=== PATIENT | male | born 1940 | race Caucasian/White ===

== ENCOUNTER 2020-11-07 13:16 | Emergency (ER) | payer MEDICARE ==
[~2020-11-07 13:16] MED LIST: 8 HOUR650 MG GT; ADVAIR 100-501 EACH; ALLOPURINOL 10100 MG GT; ALLOPURINOL100 MG PO; AMOXICILLIN500 MG PO; ANORO ELLIPTA1 EACH INH; ASPIRIN CHEWABL81 MG GT; ASPIRIN CHEWABL81 MG PO; ASTROVASTIN PO; ATARAX25 MG PO; ATROVENT (00.2 MG/ML INH; AZITHROMYCIN250 MG PO; BACITRACIN15 GM TOP; BENZONATATE200 MG PO; BEVESPI AEROS10.7 GM PO; BUMEX1 MG GT; BUMEX1 MG PO; BYSTOLIC5 MG PO; CEFDINIR300 MG PO; CEFTIN250 MG PO; DOCU LIQUI50 MG/5 ML JT; DULERA 200 MCG8.8 GM INH; DUONEB 2.5-0.5M1 AMP INH; DUONEB 2.5-0.5M1 AMP NEB; ELIQUIS5 MG JT; ERYTHROMYCIN1 G1 EYELF; FLONASE ALLER15.8 ML; FLOVENT HF120 PUFFS/ INH; HYDROCODON-ACE1 EAC2 PO; INDOMETHACIN50 MG PO; IPRATROPIUM0.2 MG/ML NEB; JEVITY 1.2 CA1000 ML GT; KEPPRA100 MG/1 M GT; LACTINEX1 EACH PO; LANSOPRAZOLE30 M1 GT; LASIX40 MG PO; LEVAQUIN500 MG PO; LEVAQUIN750 MG PO; LEVOTHYROXINE112 MCG PO; LIDOCAINE 5% P1 EACH TOP; LIPITOR40 MG PO; LOPRESSOR25 MG JT; LOPRESSOR25 MG PO; MEDROL 4MG DOSEP4 MG PO; MONTELUKAST SOD10 MG PO; MUCINEX 600MG600 MG PO; NIFEREX150 MG GT; NITROQUIK SL0.4 MG SL; NITROSTAT0.4 MG SL; NORCO 5-325 TA1 EACH GT; NORCO 5-325 TA1 EACH PO; NORCO 7.5-3251 EACH PO; PATIENT'S OWN MED GT; PEPCID AC20 MG GT; PERMETHRIN CREA60 GM TOP; POTASSIUM20 MEQ/11 GT; POTASSIUM20 MEQ/11 JT; PREDNISONE 10MG10 MG PO; PREDNISONE 20MG20 MG PO; PRILOSEC20 MG PO; PRINIVIL10 MG PO; PROAIR HFA8.5 GM; PROAMATINE5 MG GT; PROMOD946 ML GT; PROVENTIL HFA6.7 GM INH; REMERON15 MG GT; REMERON15 MG PO; SINGULAIR10 MG PO; STOOL SOFTENER100 M1 PO; SYNTHROID112 MCG GT; SYNTHROID112 MCG PO; THEO-24300 MG PO; THEOCHRON300 MG PO; THEOPHYLLI80 MG/151 GT; VENTOLIN (2.5 MG/3 M INH; VENTOLIN (2.5 MG/3 M NEB; VENTOLIN HFA IN18 GM INH; XARELTO20 MG PO; ZINC OXIDE60 GM TOP; ZITHROMAX500 MG PO; ZPAK PO
[2020-11-07 14:08] LABS: BASOPHIL 1.1 % (0-2); EOSINOPHIL 4.6 % (0-7); HCT 37.7 % (42.0-52.0); HGB 11.3 g/dl (13.2-18.0); MCH 29.7 pg (25.0-31.0); MCV 99.2 fL (78.0-100.0); MONOCYTE 10.6 % (0-12); MPV 11.2 fL (6.0-9.5); NEUTROPHIL 73.4 % (41-80); NRBC 0; PLT 96 K/uL (150-400); RDW 13.2 % (11.5-14.0); WBC 7.2 K/uL (4.0-10.5)
[2020-11-07 14:28] LABS: ALBUMIN 3.3 g/dL (3.4-5.0); BILIRUBIN - TOTAL 0.3 mg/dL (0.2-1.0); BUN/CREAT RATIO (CALC) 37.3 RATIO; CREATININE 1.02 mg/dL (0.67-1.17); GLOBULIN (CALCULATION) 3.7 g/dL; POTASSIUM 4.5 mmol/L (3.5-5.1)
[2020-11-07 14:40] LABS: LACTIC ACID 1.8 mmol/L (0.4-1.9)
[2020-11-07 14:44] LABS: PRO-BNP 3095 pg/mL (<450)
[2020-11-07 15:02] LABS: PROTHROMBIN TIME 12.6 SECONDS (11.8-13.4); PTT 29.2 SECONDS (24.4-34.7)
[2020-11-07] MEDS ORDERED: BUMEX1 MG PO (16:39)
[2020-11-07] MEDS ORDERED: K-DUR20 MEQ PO (16:39)
== END 2020-11-07 17:20 | disposition home or self-care (01) ==
LOC: FER 13:16
PROVIDERS: Emergency Medicine
DX: I50.9 Heart failure, unspecified (principal); I25.10 Atherosclerotic heart disease of native coronary artery without angina pectoris; J44.9 Chronic obstructive pulmonary disease, unspecified; Z20.822 Contact with and (suspected) exposure to COVID-19; Z95.0 Presence of cardiac pacemaker; Z88.5 Allergy status to narcotic agent
CPT/HCPCS: 36415; 71045; 80053; 83605; 83880; 84484; 85025; 85610; 85730; 87040; 93005; J1940; U0002

== ENCOUNTER 2020-11-10 13:19 | Day surgery (SDCO) | payer MEDICARE ==
[~2020-11-10] VITALS: Ht 175.3 cm; Wt 67.4 kg
[~2020-11-10 13:19] MED LIST changes: +K-DUR20 MEQ PO
[2020-11-10 15:31] LABS: BASOPHIL 0.7 % (0-2); EOSINOPHIL 7.5 % (0-7); HCT 37.5 % (42.0-52.0); HGB 11.3 g/dl (13.2-18.0); LYMPHOCYTE 18.1 % (15-48); MCH 29.4 pg (25.0-31.0); MCHC 30.1 g/dL (32.0-36.0); MCV 97.4 fL (78.0-100.0); MONOCYTE 10.3 % (0-12); MPV 11.1 fL (6.0-9.5); NEUTROPHIL 63.2 % (41-80); NRBC 0; PLT 105 K/uL (150-400); RBC 3.85 M/uL (4.70-6.00); RDW 12.8 % (11.5-14.0)
[2020-11-10 15:44] LABS: ALBUMIN 3.1 g/dL (3.4-5.0); BILIRUBIN - TOTAL 0.3 mg/dL (0.2-1.0); BUN/CREAT RATIO (CALC) 44.3 RATIO; CREATININE 0.97 mg/dL (0.67-1.17); GLOBULIN (CALCULATION) 3.6 g/dL; POTASSIUM 4.7 mmol/L (3.5-5.1); TOTAL PROTEIN 6.7 g/dL (6.4-8.2)
[2020-11-10 15:48] LABS: PRO-BNP 2005 pg/mL (<450)
[2020-11-10 16:03] LABS: INR 0.98 (0.9-1.2); PROTHROMBIN TIME 12.4 SECONDS (11.8-13.4)
[2020-11-10 17:35] LABS: BILIRUBIN NEGATIVE (NEGATIVE); BLOOD NEGATIVE Ery/uL (NEGATIVE); CLARITY CLEAR (CLEAR); COLOR YELLOW (YELLOW); GLUCOSE (U) NORMAL (NORMAL); LEUKOCYTES NEGATIVE Leu/uL (NEGATIVE); NITRITE NEGATIVE (NEGATIVE); PROTEIN 1+ mg/dL (NEGATIVE); UROBILINOGEN 0.2 mg/dL (0.2-1.0)
[2020-11-10 17:50] LABS: AMORPHOUS URATES CRYSTALS TRACE; URINARY WBC RARE
[2020-11-10] MEDS ORDERED: SYNTHROID125 MCG PEG (23:18)
[2020-11-10] MEDS ORDERED: JEVITY 1.5 CA1500 ML GT (23:27)
[2020-11-10] MEDS ORDERED: PRILOSEC20 MG PEG (23:39)
[2020-11-10] MEDS ORDERED: POTASSIUM20 MEQ/11 PEG (23:42)
[2020-11-11 04:14] LABS: BASOPHIL 1.1 % (0-2); EOSINOPHIL 9.2 % (0-7); HCT 37.3 % (42.0-52.0); HGB 11.4 g/dl (13.2-18.0); LYMPHOCYTE 23.3 % (15-48); MCH 29.3 pg (25.0-31.0); MCHC 30.6 g/dL (32.0-36.0); MCV 95.9 fL (78.0-100.0); MONOCYTE 9.4 % (0-12); MPV 10.6 fL (6.0-9.5); NEUTROPHIL 56.7 % (41-80); NRBC 0; PLT 110 K/uL (150-400); RBC 3.89 M/uL (4.70-6.00); RDW 12.8 % (11.5-14.0); WBC 6.5 K/uL (4.0-10.5)
[2020-11-11 04:28] LABS: BUN/CREAT RATIO (CALC) 38.7 RATIO; CREATININE 0.93 mg/dL (0.67-1.17); POTASSIUM 4.3 mmol/L (3.5-5.1)
[2020-11-12 04:33] LABS: BASOPHIL 0.7 % (0-2); EOSINOPHIL 0.1 % (0-7); HCT 37.1 % (42.0-52.0); HGB 11.5 g/dl (13.2-18.0); LYMPHOCYTE 11.2 % (15-48); MCH 29.3 pg (25.0-31.0); MCV 94.6 fL (78.0-100.0); MONOCYTE 6.9 % (0-12); MPV 10.7 fL (6.0-9.5); NEUTROPHIL 80.7 % (41-80); NRBC 0; PLT 113 K/uL (150-400); RBC 3.92 M/uL (4.70-6.00); RDW 12.4 % (11.5-14.0); WBC 7.4 K/uL (4.0-10.5)
[2020-11-12 04:57] LABS: BUN/CREAT RATIO (CALC) 45.5 RATIO; CREATININE 1.1 mg/dL (0.67-1.17); POTASSIUM 4.7 mmol/L (3.5-5.1)
[2020-11-12] MEDS ORDERED: BUMEX1 MG PO (17:06)
[2020-11-12] MEDS ORDERED: AZITHROMYC100 MG/5 M PEG (17:11)
[2020-11-12] MEDS ORDERED: DUONEB 2.5-0.5M1 AMP NEB (17:11)
[2020-11-12] MEDS ORDERED: PREDNISOLO15 MG/5 M3 PEG (17:11)
[2020-11-12] MEDS ORDERED: SYMBICORT 80-10.2 GM INH (17:13)
[2020-11-13 06:32] LABS: BUN/CREAT RATIO (CALC) 55.8 RATIO; CREATININE 0.95 mg/dL (0.67-1.17); POTASSIUM 4.6 mmol/L (3.5-5.1)
--- NOTE | 2020-11-13 13:47 | NUR ---
PT REQUESTED [facility]. PT SIGNED CHOICE FORM.
== END 2020-11-13 17:04 | disposition home health service (06) ==
LOC: FER 13:19 → FMS 18:13
PROVIDERS: Internal Medicine Cardiovascular Disease; Nurse Practitioner; Physician Assistant; ADMIT Allergy & Immunology Allergy
DX: I13.0 Hypertensive heart and chronic kidney disease with heart failure and stage 1 through stage 4 chronic kidney disease, or unspecified chronic kidney disease (principal); N18.9 Chronic kidney disease, unspecified; I50.9 Heart failure, unspecified; J44.1 Chronic obstructive pulmonary disease with (acute) exacerbation; R53.1 Weakness; R53.83 Other fatigue; I25.5 Ischemic cardiomyopathy; E87.0 Hyperosmolality and hypernatremia; I25.10 Atherosclerotic heart disease of native coronary artery without angina pectoris; I48.0 Paroxysmal atrial fibrillation; K21.9 Gastro-esophageal reflux disease without esophagitis; E78.5 Hyperlipidemia, unspecified; E03.9 Hypothyroidism, unspecified; E43 Unspecified severe protein-calorie malnutrition; M19.90 Unspecified osteoarthritis, unspecified site; Z87.891 Personal history of nicotine dependence; Z95.810 Presence of automatic (implantable) cardiac defibrillator; Z99.81 Dependence on supplemental oxygen; Z95.1 Presence of aortocoronary bypass graft; Z91.041 Radiographic dye allergy status; Z79.899 Other long term (current) drug therapy; Z20.822 Contact with and (suspected) exposure to COVID-19
CPT/HCPCS: 36415; 71045; 80048; 80053; 81001; 83880; 84145; 84484; 85025; 85610; 93005; 94640; 94667; 94668; 97166; 97530; G0378; J1650; J2930; J7512; U0002

== ENCOUNTER 2021-04-05 03:56 | Inpatient (IN) | payer MEDICARE ==
[~2021-04-05] VITALS: Ht 175.3 cm; Wt 68.1 kg
[~2021-04-05 03:56] MED LIST changes: +AZITHROMYC100 MG/5 M PEG; +JEVITY 1.5 CA1500 ML GT; +POTASSIUM20 MEQ/11 PEG; +PREDNISOLO15 MG/5 M3 PEG; +PRILOSEC20 MG PEG; +SYMBICORT 80-10.2 GM INH; +SYNTHROID125 MCG PEG
[2021-04-05 04:22] LABS: BASOPHIL 0.8 % (0-2); EOSINOPHIL 2.5 % (0-7); HCT 40.9 % (42.0-52.0); LYMPHOCYTE 12.4 % (15-48); MCH 29.8 pg (25.0-31.0); MCHC 29.3 g/dL (32.0-36.0); MCV 101.5 fL (78.0-100.0); MONOCYTE 12.7 % (0-12); MPV 10.6 fL (6.0-9.5); NEUTROPHIL 71.2 % (41-80); NRBC 0; RBC 4.03 M/uL (4.70-6.00); RDW 12.6 % (11.5-14.0); WBC 7.3 K/uL (4.0-10.5)
[2021-04-05 04:23] LABS: PLT 93 K/uL (150-400)
[2021-04-05 04:35] LABS: ALBUMIN 3.6 g/dL (3.4-5.0); BILIRUBIN - TOTAL 0.4 mg/dL (0.2-1.0); BUN/CREAT RATIO (CALC) 36.3 RATIO; CREATININE 1.02 mg/dL (0.67-1.17); GLOBULIN (CALCULATION) 3.5 g/dL; POTASSIUM 4.8 mmol/L (3.5-5.1); TOTAL PROTEIN 7.1 g/dL (6.4-8.2)
[2021-04-05 06:27] LABS: BILIRUBIN NEGATIVE (NEGATIVE); BLOOD TRACE-INTACT Ery/uL (NEGATIVE); CLARITY CLEAR (CLEAR); COLOR YELLOW (YELLOW); GLUCOSE (U) NORMAL (NORMAL); LEUKOCYTES NEGATIVE Leu/uL (NEGATIVE); NITRITE NEGATIVE (NEGATIVE); PROTEIN TRACE (LOW) mg/dL (NEGATIVE); UROBILINOGEN 0.2 mg/dL (0.2-1.0); pH 6.5 (5.0-9.0)
[2021-04-05 06:47] LABS: URINARY WBC RARE
[2021-04-05 06:48] LABS: BACTERIA 1+
[2021-04-05] MEDS ORDERED: SYNTHROID125 MCG PO (14:48)
[2021-04-05] MEDS ORDERED: LIPITOR40 MG PO (14:48)
[2021-04-05] MEDS ORDERED: REMERON15 MG PO (14:49)
[2021-04-05] MEDS ORDERED: PEPCID AC20 MG PO (14:50)
[2021-04-05] MEDS ORDERED: KLOR-CON M1515 MEQ PO (14:50)
[2021-04-05] MEDS ORDERED: PRILOSEC20 MG PO (14:50)
--- NOTE | 2021-04-06 05:51 | NUR ---
PT GOT BOLUS FEEDING OF 2 1.5 JEVITY CONTAINERS AT 2200 04/05/21 AND WAS FLUSHED WITH 100 ML OF WATER
[2021-04-06 06:55] LABS: BASOPHIL 0.2 % (0-2); EOSINOPHIL 0 % (0-7); HCT 35.4 % (42.0-52.0); HGB 10.9 g/dl (13.2-18.0); LYMPHOCYTE 7.5 % (15-48); MCH 30.2 pg (25.0-31.0); MCHC 30.8 g/dL (32.0-36.0); MCV 98.1 fL (78.0-100.0); MONOCYTE 6.1 % (0-12); MPV 11.2 fL (6.0-9.5); NRBC 0; RBC 3.61 M/uL (4.70-6.00); RDW 12.1 % (11.5-14.0); WBC 5.6 K/uL (4.0-10.5)
[2021-04-06 06:56] LABS: PLT 93 K/uL (150-400)
[2021-04-06 07:10] LABS: BUN/CREAT RATIO (CALC) 49.5 RATIO; CREATININE 0.97 mg/dL (0.67-1.17); POTASSIUM 4.4 mmol/L (3.5-5.1)
[2021-04-06] MEDS ORDERED: VENTOLIN HFA IN18 GM INH (18:02)
[2021-04-06] MEDS ORDERED: DUONEB 2.5-0.5M1 AMP INH (18:02)
[2021-04-09 06:44] LABS: BASOPHIL 0.3 % (0-2); EOSINOPHIL 0 % (0-7); HCT 40.4 % (42.0-52.0); HGB 12.6 g/dl (13.2-18.0); MCH 29.5 pg (25.0-31.0); MCHC 31.2 g/dL (32.0-36.0); MCV 94.6 fL (78.0-100.0); MONOCYTE 3.1 % (0-12); MPV 11.6 fL (6.0-9.5); NEUTROPHIL 85.7 % (41-80); NRBC 0; RBC 4.27 M/uL (4.70-6.00); WBC 6.7 K/uL (4.0-10.5)
[2021-04-09 06:46] LABS: PLT 108 K/uL (150-400)
[2021-04-09 06:56] LABS: BUN/CREAT RATIO (CALC) 49.4 RATIO; CREATININE 0.85 mg/dL (0.67-1.17); POTASSIUM 5.4 mmol/L (3.5-5.1)
--- NOTE | 2021-04-10 14:45 | NUR ---
MET WITH PT. HE STATES THAT HE HAS A ROLLING WALKER, 05/15 AND HOME O2. HE IS ON 3L AT HOME, BUT CURRENLTY ON 4 L AT THE HOSPITAL. HIS OXYGEN IS THROUGH [facility]. HE CONTINUES TO DECLINE HAVING HH. HE RESIDES WITH HIS .
--- NOTE | 2021-04-11 01:44 | NUR ---
pt refused 2200 feeding last evening on 04/10/2021
--- NOTE | 2021-04-11 10:15 | NUR ---
TC TO PT DAUGHTER, MARCELLA. SHE WILL PICK PT UP FOR TRANSPORT HOME. SHE NEEDS TO BE BACK HOME BEFORE 3:00 TO MEET THE CHILDREN OFF THE BUS. ADVISED ALYSON CAVANAUGH OF DAUGHTERS SITUATION. PAMELA WILL ALERT DR. ROY. ADVISED AFSHAN TO CALL DAUGHTER WHEN PT IS READY FOR DC. TC TO [facility]; EXPLAINED TRANSPORTATION HAS BEEN ARRANAGED.
[2021-04-11 10:16] LABS: BUN/CREAT RATIO (CALC) 39.8 RATIO; CREATININE 0.93 mg/dL (0.67-1.17); POTASSIUM 4.4 mmol/L (3.5-5.1)
[2021-04-11] MEDS ORDERED: CEFDINIR 1125 MG/5 M GT (10:25)
[2021-04-11] MEDS ORDERED: MEDROL 4MG DOSEP4 MG PO (10:27)
[2021-04-11] MEDS ORDERED: BUMEX1 MG PO (10:27)
== END 2021-04-11 12:10 | disposition home or self-care (01) | DRG 177 ==
LOC: FER 03:56 → FMS 11:30
PROVIDERS: Allergy & Immunology Allergy; Emergency Medicine Emergency Medical Services; ADMIT Internal Medicine
DX: J15.6 Pneumonia due to other Gram-negative bacteria (principal); I50.33 Acute on chronic diastolic (congestive) heart failure; J96.21 Acute and chronic respiratory failure with hypoxia; J96.22 Acute and chronic respiratory failure with hypercapnia; J43.9 Emphysema, unspecified; J69.0 Pneumonitis due to inhalation of food and vomit; R13.10 Dysphagia, unspecified; Z20.822 Contact with and (suspected) exposure to COVID-19; I11.0 Hypertensive heart disease with heart failure; E03.9 Hypothyroidism, unspecified; I48.0 Paroxysmal atrial fibrillation; I25.10 Atherosclerotic heart disease of native coronary artery without angina pectoris; K21.9 Gastro-esophageal reflux disease without esophagitis; M10.9 Gout, unspecified; E78.5 Hyperlipidemia, unspecified; I25.5 Ischemic cardiomyopathy; Z99.81 Dependence on supplemental oxygen; Z96.641 Presence of right artificial hip joint; Z95.810 Presence of automatic (implantable) cardiac defibrillator; Z95.1 Presence of aortocoronary bypass graft; Z90.49 Acquired absence of other specified parts of digestive tract; Z87.891 Personal history of nicotine dependence; Z91.041 Radiographic dye allergy status; Z79.899 Other long term (current) drug therapy
CPT/HCPCS: 36415; 36600; 71045; 71250; 80048; 80053; 81001; 82803; 83605; 83880; 84145; 84484; 85025; 87040; 87070; 87076; 87077; 87088; 87186; 87205; 93005; 94640; J0696; J1650; J2543; J2920; J2930; J7030; J7510; U0002

== ENCOUNTER 2021-05-31 15:37 | Inpatient (IN) | payer MEDICARE ==
[~2021-05-31] VITALS: Ht 175.3 cm; Wt 65.9 kg
[~2021-05-31 15:37] MED LIST changes: +CEFDINIR 1125 MG/5 M GT; +KLOR-CON M1515 MEQ PO; +PEPCID AC20 MG PO; +SYNTHROID125 MCG PO
[2021-05-31 16:26] LABS: BASOPHIL 0.6 % (0-2); EOSINOPHIL 2.1 % (0-7); HCT 43.1 % (42.0-52.0); HGB 12.5 g/dl (13.2-18.0); LYMPHOCYTE 4.6 % (15-48); MCV 103.6 fL (78.0-100.0); MONOCYTE 5.5 % (0-12); MPV 12.1 fL (6.0-9.5); NEUTROPHIL 86.6 % (41-80); NRBC 0; PLT 99 K/uL (150-400); RBC 4.16 M/uL (4.70-6.00); RDW 14.3 % (11.5-14.0)
[2021-05-31 16:29] LABS: WBC 17.6 K/uL (4.0-10.5)
[2021-05-31 17:01] LABS: LACTIC ACID 1.6 mmol/L (0.4-1.9)
[2021-05-31 17:20] LABS: ALBUMIN 3.7 g/dL (3.4-5.0); BILIRUBIN - TOTAL 0.5 mg/dL (0.2-1.0); BUN/CREAT RATIO (CALC) 43.7 RATIO; CREATININE 1.35 mg/dL (0.67-1.17); GLOBULIN (CALCULATION) 3.7 g/dL; POTASSIUM 5.5 mmol/L (3.5-5.1); TOTAL PROTEIN 7.4 g/dL (6.4-8.2)
[2021-05-31 19:37] LABS: BILIRUBIN NEGATIVE (NEGATIVE); BLOOD NEGATIVE Ery/uL (NEGATIVE); CLARITY CLEAR (CLEAR); COLOR YELLOW (YELLOW); GLUCOSE (U) NORMAL (NORMAL); LEUKOCYTES NEGATIVE Leu/uL (NEGATIVE); NITRITE NEGATIVE (NEGATIVE); PROTEIN 1+ mg/dL (NEGATIVE); UROBILINOGEN 0.2 mg/dL (0.2-1.0); pH 8.5 (5.0-9.0)
[2021-05-31 19:45] LABS: URINARY WBC RARE
[2021-05-31 20:01] LABS: FOLIC ACID (SERUM) 11.7 ng/mL (8.6-58.9); FT4 (FREE T4) 1.4 ng/dL (0.76-1.46)
[2021-06-01 00:06] LABS: BUN/CREAT RATIO (CALC) 41.1 RATIO; CREATININE 1.29 mg/dL (0.67-1.17); POTASSIUM 4.8 mmol/L (3.5-5.1)
[2021-06-01 06:17] LABS: BASOPHIL 0.9 % (0-2); EOSINOPHIL 2.1 % (0-7); HCT 32.8 % (42.0-52.0); HGB 9.5 g/dl (13.2-18.0); LYMPHOCYTE 13.6 % (15-48); MCH 30.1 pg (25.0-31.0); MCV 103.8 fL (78.0-100.0); MONOCYTE 6.7 % (0-12); MPV 12.4 fL (6.0-9.5); NEUTROPHIL 76.1 % (41-80); NRBC 0; RBC 3.16 M/uL (4.70-6.00); RDW 14.2 % (11.5-14.0); WBC 10.5 K/uL (4.0-10.5)
[2021-06-01 06:19] LABS: PLT 73 K/uL (150-400)
[2021-06-01 06:40] LABS: BUN/CREAT RATIO (CALC) 38.7 RATIO; CREATININE 1.24 mg/dL (0.67-1.17); POTASSIUM 4.5 mmol/L (3.5-5.1)
[2021-06-01 12:06] LABS: BUN/CREAT RATIO (CALC) 43.1 RATIO; CREATININE 1.16 mg/dL (0.67-1.17); POTASSIUM 4.4 mmol/L (3.5-5.1)
[2021-06-02 06:09] LABS: BASOPHIL 0.3 % (0-2); EOSINOPHIL 0.1 % (0-7); HCT 32.3 % (42.0-52.0); HGB 9.8 g/dl (13.2-18.0); LYMPHOCYTE 4.7 % (15-48); MCH 30.1 pg (25.0-31.0); MCHC 30.3 g/dL (32.0-36.0); MONOCYTE 1.3 % (0-12); MPV 12.7 fL (6.0-9.5); NEUTROPHIL 92.8 % (41-80); NRBC 0; RBC 3.26 M/uL (4.70-6.00); WBC 8.8 K/uL (4.0-10.5)
[2021-06-02 06:11] LABS: MCV 99.1 fL (78.0-100.0); PLT 80 K/uL (150-400)
[2021-06-02 06:24] LABS: BUN/CREAT RATIO (CALC) 54.6 RATIO; CREATININE 1.19 mg/dL (0.67-1.17); POTASSIUM 5.3 mmol/L (3.5-5.1)
[2021-06-03 06:06] LABS: BASOPHIL 0.1 % (0-2); EOSINOPHIL 0 % (0-7); HCT 29.8 % (42.0-52.0); HGB 9.2 g/dl (13.2-18.0); MCHC 30.9 g/dL (32.0-36.0); MCV 97.1 fL (78.0-100.0); NRBC 0; RBC 3.07 M/uL (4.70-6.00); RDW 14.1 % (11.5-14.0); WBC 8.6 K/uL (4.0-10.5)
[2021-06-03 06:08] LABS: NEUTROPHIL 93.4 % (41-80); PLT 94 K/uL (150-400)
[2021-06-03 06:34] LABS: CREATININE 1.03 mg/dL (0.67-1.17); POTASSIUM 4.8 mmol/L (3.5-5.1)
[2021-06-04 14:15] LABS: IRON % SATURATION 35.4 %SAT (20-50)
[2021-06-06 06:22] LABS: BASOPHIL 0.6 % (0-2); EOSINOPHIL 0.8 % (0-7); HCT 32.5 % (42.0-52.0); HGB 10.1 g/dl (13.2-18.0); LYMPHOCYTE 10.3 % (15-48); MCH 30.6 pg (25.0-31.0); MCHC 31.1 g/dL (32.0-36.0); MCV 98.5 fL (78.0-100.0); MONOCYTE 9.6 % (0-12); NRBC 0.5; PLT 126 K/uL (150-400); RDW 14.5 % (11.5-14.0); WBC 10.7 K/uL (4.0-10.5)
[2021-06-06 06:35] LABS: BUN/CREAT RATIO (CALC) 57.1 RATIO; CREATININE 0.84 mg/dL (0.67-1.17); MAGNESIUM 2.4 mg/dL (1.8-2.4); POTASSIUM 4.6 mmol/L (3.5-5.1)
[2021-06-06] MEDS ORDERED: CEFDINIR300 MG PO (15:38)
== END 2021-06-06 17:18 | disposition home health service (06) | DRG 190 ==
LOC: FER 15:37 → FMS 17:34
PROVIDERS: Emergency Medicine; Internal Medicine; Nurse Practitioner Acute Care; ADMIT Internal Medicine
PROC: 3E0G76Z Introduction of Nutritional Substance into Upper GI, Via Natural or Artificial Opening (ICD-10-PCS; principal; 2021-06-01)
PROC: 05HY33Z Insertion of Infusion Device into Upper Vein, Percutaneous Approach (ICD-10-PCS; 2021-06-02)
DX: J44.1 Chronic obstructive pulmonary disease with (acute) exacerbation (principal); J18.9 Pneumonia, unspecified organism; J96.10 Chronic respiratory failure, unspecified whether with hypoxia or hypercapnia; I50.32 Chronic diastolic (congestive) heart failure; I13.0 Hypertensive heart and chronic kidney disease with heart failure and stage 1 through stage 4 chronic kidney disease, or unspecified chronic kidney disease; E87.0 Hyperosmolality and hypernatremia; N17.9 Acute kidney failure, unspecified; I25.5 Ischemic cardiomyopathy; Z20.822 Contact with and (suspected) exposure to COVID-19; N18.9 Chronic kidney disease, unspecified; E87.5 Hyperkalemia; J44.0 Chronic obstructive pulmonary disease with (acute) lower respiratory infection; D69.6 Thrombocytopenia, unspecified; D53.9 Nutritional anemia, unspecified; R94.31 Abnormal electrocardiogram [ECG] [EKG]; E78.5 Hyperlipidemia, unspecified; E86.0 Dehydration; I25.10 Atherosclerotic heart disease of native coronary artery without angina pectoris; I48.0 Paroxysmal atrial fibrillation; E03.9 Hypothyroidism, unspecified; J38.7 Other diseases of larynx; K21.9 Gastro-esophageal reflux disease without esophagitis; M10.9 Gout, unspecified; I27.20 Pulmonary hypertension, unspecified; Z96.641 Presence of right artificial hip joint; Z99.81 Dependence on supplemental oxygen; Z95.810 Presence of automatic (implantable) cardiac defibrillator; Z90.49 Acquired absence of other specified parts of digestive tract; Z93.1 Gastrostomy status; Z95.1 Presence of aortocoronary bypass graft; Z87.891 Personal history of nicotine dependence; Z79.899 Other long term (current) drug therapy; I25.2 Old myocardial infarction; Z92.3 Personal history of irradiation
CPT/HCPCS: 36415; 36600; 71045; 71250; 80048; 80053; 81001; 82607; 82728; 82746; 82803; 83540; 83550; 83605; 83735; 84145; 84439; 84443; 84484; 85025; 86140; 87040; 93005; 94010; 94640; C9113; J0456; J0696; J1650; J2916; J2920; J7030; J7040; J7050; J7070; J7512; U0002

== ENCOUNTER 2021-07-30 10:34 | Inpatient (IN) | payer MEDICARE ==
[~2021-07-30] VITALS: Ht 175.3 cm; Wt 83.3 kg
[2021-07-30 11:17] LABS: BASOPHIL 0.8 % (0-2); EOSINOPHIL 3.2 % (0-7); HCT 46.6 % (42.0-52.0); HGB 12.7 g/dl (13.2-18.0); MCH 30.8 pg (25.0-31.0); MCHC 27.3 g/dL (32.0-36.0); MCV 113.1 fL (78.0-100.0); MONOCYTE 5.7 % (0-12); MPV 12.8 fL (6.0-9.5); NEUTROPHIL 78.5 % (41-80); NRBC 0.2; PLT 106 K/uL (150-400); RBC 4.12 M/uL (4.70-6.00); RDW 13.6 % (11.5-14.0)
[2021-07-30 11:21] LABS: PTT 23.8 SECONDS (24.4-34.7)
[2021-07-30 11:25] LABS: INR 1.07 (0.9-1.2); PROTHROMBIN TIME 13.3 SECONDS (11.8-13.4)
[2021-07-30 11:27] LABS: ALBUMIN 2.9 g/dL (3.4-5.0); BILIRUBIN - TOTAL 0.6 mg/dL (0.2-1.0); CREATININE 2.15 mg/dL (0.67-1.17); GLOBULIN (CALCULATION) 4.5 g/dL; POTASSIUM 5.2 mmol/L (3.5-5.1); TOTAL PROTEIN 7.4 g/dL (6.4-8.2)
[2021-07-30 11:39] LABS: LACTIC ACID 2.1 mmol/L (0.4-1.9)
[2021-07-30 11:42] LABS: BILIRUBIN NEGATIVE (NEGATIVE); BLOOD NEGATIVE Ery/uL (NEGATIVE); CLARITY CLEAR (CLEAR); COLOR YELLOW (YELLOW); GLUCOSE (U) NORMAL (NORMAL); LEUKOCYTES NEGATIVE Leu/uL (NEGATIVE); NITRITE NEGATIVE (NEGATIVE); PROTEIN 1+ mg/dL (NEGATIVE); SPECIFIC GRAVITY 1.015 (1.001-1.030); UROBILINOGEN 0.2 mg/dL (0.2-1.0)
[2021-07-30 11:51] LABS: BACTERIA 1+; URINARY WBC RARE
[2021-07-30 11:52] LABS: MUCOUS TRACE
[2021-07-30 12:20] LABS: CORONAVIRUS 2019 SARS-COV-2 NEGATIVE (NEGATIVE); INFLUENZA A NAA NEGATIVE (NEGATIVE)
[2021-07-31 03:58] LABS: BASOPHIL 0.8 % (0-2); EOSINOPHIL 3.8 % (0-7); HCT 37.3 % (42.0-52.0); HGB 10.1 g/dl (13.2-18.0); LYMPHOCYTE 11.1 % (15-48); MCHC 27.1 g/dL (32.0-36.0); MCV 114.4 fL (78.0-100.0); MONOCYTE 5.1 % (0-12); MPV 11.8 fL (6.0-9.5); NEUTROPHIL 78.4 % (41-80); NRBC 0; RBC 3.26 M/uL (4.70-6.00); RDW 13.3 % (11.5-14.0); WBC 11.9 K/uL (4.0-10.5)
[2021-07-31 04:15] LABS: CREATININE 1.69 mg/dL (0.67-1.17); MAGNESIUM 2.7 mg/dL (1.8-2.4); POTASSIUM 4.3 mmol/L (3.5-5.1)
[2021-07-31 04:37] LABS: PLT 90 K/uL (150-400)
[2021-07-31 08:34] LABS: BUN/CREAT RATIO (CALC) 37.4 RATIO; CREATININE 1.63 mg/dL (0.67-1.17); POTASSIUM 4.7 mmol/L (3.5-5.1)
--- NOTE | 2021-07-31 13:13 | NUR ---
07/31 Mr. Carnes lives at home with his spouse. [facility] is curent and have been notified of admission. Patient has: 02 at 3L, portable, wc, rw, 3in1, and s. chair. - Mr. Carnes is followed at [facility]. He reports to have problems getting transportation. Mr. Carnes was educated to [employer]. He is able to ride at no cost to medical appointments and the grocery once a week. - Will monitor for SNF needs.
[2021-07-31 16:36] LABS: CREATININE 1.37 mg/dL (0.67-1.17); POTASSIUM 4.2 mmol/L (3.5-5.1)
[2021-08-01 06:17] LABS: BASOPHIL 0.6 % (0-2); EOSINOPHIL 3.2 % (0-7); HCT 32.2 % (42.0-52.0); HGB 9.3 g/dl (13.2-18.0); LYMPHOCYTE 10.3 % (15-48); MCH 30.8 pg (25.0-31.0); MCHC 28.9 g/dL (32.0-36.0); MONOCYTE 5.7 % (0-12); MPV 11.7 fL (6.0-9.5); NRBC 0.2; PLT 111 K/uL (150-400); RBC 3.02 M/uL (4.70-6.00); RDW 13.2 % (11.5-14.0); WBC 12.6 K/uL (4.0-10.5)
[2021-08-01 06:30] LABS: BUN/CREAT RATIO (CALC) 30.6 RATIO; CREATININE 1.21 mg/dL (0.67-1.17)
[2021-08-01 07:19] LABS: MCV 106.6 fL (78.0-100.0)
[2021-08-01 23:07] LABS: BILIRUBIN NEGATIVE (NEGATIVE); BLOOD NEGATIVE Ery/uL (NEGATIVE); CLARITY CLEAR (CLEAR); COLOR YELLOW (YELLOW); GLUCOSE (U) TRACE mg/dL (NORMAL); LEUKOCYTES NEGATIVE Leu/uL (NEGATIVE); NITRITE NEGATIVE (NEGATIVE); PROTEIN NEGATIVE (NEGATIVE); SPECIFIC GRAVITY <=1.005 (1.001-1.030); UROBILINOGEN 0.2 mg/dL (0.2-1.0)
[2021-08-02 05:45] LABS: ALBUMIN 1.9 g/dL (3.4-5.0); BILIRUBIN - TOTAL 0.2 mg/dL (0.2-1.0); BUN/CREAT RATIO (CALC) 27.5 RATIO; CREATININE 1.09 mg/dL (0.67-1.17); POTASSIUM 4.7 mmol/L (3.5-5.1)
[2021-08-02 05:54] LABS: GLOBULIN (CALCULATION) 3.4 g/dL; MAGNESIUM 2.1 mg/dL (1.8-2.4); TOTAL PROTEIN 5.3 g/dL (6.4-8.2)
--- NOTE | 2021-08-02 11:15 | NUR ---
[address] ROY THAT PT WAS MORE EDEMATUS,SOA AND REQUIRING MORE O2,AND WHEEZE BREATHE SOUNDS ON THE LEFT SIDE ORDERS GIVEN TO STOP IV FLUIDS,START ALBUMIN AND LASIX
--- NOTE | 2021-08-02 19:10 | NUR ---
PICC LINE ORDER PLACED. I SPOKE WITH DR. ROY, PATIENT HAS TRIPLE LUMEN CENTRAL LINE IN PLACE, DR ROY UNABLE TO GET BLOOD RETURN FROM CENTRAL LINE, UNABLE TO ADVANCE CENTRAL LINE R/T RIGHT PACEMAKER WIRES PER DR. ROY REPORT. I ATTEMPTED TO PLACE PICC LINE USING LEFT UPPER BASILIC VEIN, USING STERILE TECHNIQUE. THIS ATTEMPT WAS UNSUCCESSFUL. I WAS ABLE TO GUIDE THE WIRE IN, BUT UNABLE TO FLOAT THE PICC LINE PAST 33CM. I TRIMMED THIS PICC TO 48CM ACCORDING TO MY PREVIOUS MEASUREMENTS. DR ROY NOTIFIED OF UNSUCCESSFUL ATTEMPT. I THEN MOVED TO THE RIGHT SIDE TO ATTEMPT. USING STERILE TECHNIQUE AND ULTRASOUND TECHNOLOGY I WAS ABLE TO PLACE PICC LINE TO 34CM WITH 8CM OUT AT THE INSERTION SITE. DR ROY AWARE AND WANTED ME TO INSERT PICC MIDLINE. BLOOD RETURN NOTED AND ABLE TO FLUSH THE LINE WITH EASE. A TOTAL OF 2ML OF SQ LIDOCAINE USED TO NUMB INSERTION SITE FOR BOTH ATTEMPTS.
--- NOTE | 2021-08-02 19:26 | NUR ---
RADIOLOGY REPORTS "PICC TIP PROJECTS OVER SUBLCAVIAN VEIN" NOTIFIED DR. ROY. DR AMNTILLA WITH PLACEMENT OF PICC. DRESSING MARKED "MIDLINE" WITH TIME, DATE AND INITIALS REPORT GIVEN TO NEL[facility] SHIELDS
[2021-08-03 08:43] LABS: BASOPHIL 0.4 % (0-2); HCT 22.5 % (42.0-52.0); HGB 6.9 g/dl (13.2-18.0); LYMPHOCYTE 10.3 % (15-48); MCH 31.5 pg (25.0-31.0); MCHC 30.7 g/dL (32.0-36.0); MCV 102.7 fL (78.0-100.0); MONOCYTE 5.6 % (0-12); NEUTROPHIL 81.5 % (41-80); NRBC 0.3; PLT 113 K/uL (150-400); RBC 2.19 M/uL (4.70-6.00); RDW 17.3 % (11.5-14.0); WBC 9.1 K/uL (4.0-10.5)
[2021-08-03 09:35] LABS: ALBUMIN 3.2 g/dL (3.4-5.0); BILIRUBIN - TOTAL 0.6 mg/dL (0.2-1.0); BUN/CREAT RATIO (CALC) 29.5 RATIO; CREATININE 1.22 mg/dL (0.67-1.17); GLOBULIN (CALCULATION) 2.5 g/dL; POTASSIUM 3.4 mmol/L (3.5-5.1); TOTAL PROTEIN 5.7 g/dL (6.4-8.2)
[2021-08-03 09:37] LABS: MAGNESIUM 2.4 mg/dL (1.8-2.4)
--- NOTE | 2021-08-03 13:43 | NUR ---
08/03/21 Although Mr. Carnes chose [facility], family declined [facility] offer. [facility] will accept patient pending insurance. Updated clinicals were sent to [facility] [employer].
[2021-08-04 04:11] LABS: BASOPHIL 0.7 % (0-2); EOSINOPHIL 5.4 % (0-7); HCT 28.8 % (42.0-52.0); HGB 8.6 g/dl (13.2-18.0); LYMPHOCYTE 9.4 % (15-48); MCH 30.5 pg (25.0-31.0); MCHC 29.9 g/dL (32.0-36.0); MCV 102.1 fL (78.0-100.0); MONOCYTE 5.9 % (0-12); MPV 12.3 fL (6.0-9.5); NEUTROPHIL 77.8 % (41-80); NRBC 0.2; RBC 2.82 M/uL (4.70-6.00); RDW 15.4 % (11.5-14.0)
[2021-08-04 04:15] LABS: PLT 99 K/uL (150-400)
[2021-08-04 04:29] LABS: ALBUMIN 3.5 g/dL (3.4-5.0); BILIRUBIN - TOTAL 0.5 mg/dL (0.2-1.0); BUN/CREAT RATIO (CALC) 33.1 RATIO; CREATININE 1.24 mg/dL (0.67-1.17); GLOBULIN (CALCULATION) 2.2 g/dL; POTASSIUM 3.2 mmol/L (3.5-5.1); TOTAL PROTEIN 5.7 g/dL (6.4-8.2)
[2021-08-05 10:15] LABS: BASOPHIL 0.8 % (0-2); EOSINOPHIL 5.9 % (0-7); HCT 32.9 % (42.0-52.0); HGB 9.5 g/dl (13.2-18.0); MCH 30.4 pg (25.0-31.0); MCHC 28.9 g/dL (32.0-36.0); MCV 105.1 fL (78.0-100.0); MONOCYTE 6.6 % (0-12); NEUTROPHIL 73.5 % (41-80); NRBC 0.5; PLT 125 K/uL (150-400); RBC 3.13 M/uL (4.70-6.00); RDW 15.1 % (11.5-14.0); WBC 10.5 K/uL (4.0-10.5)
[2021-08-05 10:35] LABS: BUN/CREAT RATIO (CALC) 36.4 RATIO; CREATININE 1.1 mg/dL (0.67-1.17); MAGNESIUM 2.5 mg/dL (1.8-2.4)
[2021-08-05 10:37] LABS: POTASSIUM 5.2 mmol/L (3.5-5.1)
[2021-08-06 06:23] LABS: BUN/CREAT RATIO (CALC) 42.2 RATIO; CREATININE 1.02 mg/dL (0.67-1.17); MAGNESIUM 2.6 mg/dL (1.8-2.4); POTASSIUM 4.6 mmol/L (3.5-5.1)
--- NOTE | 2021-08-06 14:50 | NUR ---
08/06 [facility] has received insurance authorization that is good through 08/08. Patient will need a new authorization if not dced by the 08/08.
[2021-08-07 05:49] LABS: BUN/CREAT RATIO (CALC) 41.2 RATIO; CREATININE 0.97 mg/dL (0.67-1.17); POTASSIUM 4.8 mmol/L (3.5-5.1)
[2021-08-08 07:25] LABS: BUN/CREAT RATIO (CALC) 47.8 RATIO; CREATININE 0.92 mg/dL (0.67-1.17)
[2021-08-08 07:42] LABS: BASOPHIL 0.8 % (0-2); EOSINOPHIL 4.2 % (0-7); HCT 29.4 % (42.0-52.0); HGB 8.6 g/dl (13.2-18.0); LYMPHOCYTE 10.7 % (15-48); MCH 30.7 pg (25.0-31.0); MCHC 29.3 g/dL (32.0-36.0); MONOCYTE 5.3 % (0-12); MPV 11.8 fL (6.0-9.5); NEUTROPHIL 76.4 % (41-80); NRBC 0.3; PLT 142 K/uL (150-400); RDW 14.5 % (11.5-14.0); WBC 10.2 K/uL (4.0-10.5)
--- NOTE | 2021-08-08 10:58 | NUR ---
08/08/21 Dr. Salcido recommends placement at a [facility]. Mr. Carnes and his daughter, Windy Jones, are in agreement. Their preference is [facility]. [facility] has accepted pending insurance auth.
[2021-08-09 06:49] LABS: BASOPHIL 0.7 % (0-2); EOSINOPHIL 4.2 % (0-7); HCT 29.6 % (42.0-52.0); HGB 8.8 g/dl (13.2-18.0); LYMPHOCYTE 9.3 % (15-48); MCHC 29.7 g/dL (32.0-36.0); MCV 104.2 fL (78.0-100.0); MONOCYTE 7.1 % (0-12); MPV 11.4 fL (6.0-9.5); NEUTROPHIL 77.4 % (41-80); NRBC 0; PLT 141 K/uL (150-400); RBC 2.84 M/uL (4.70-6.00); RDW 14.6 % (11.5-14.0); WBC 9.9 K/uL (4.0-10.5)
[2021-08-09 07:06] LABS: CREATININE 0.91 mg/dL (0.67-1.17); POTASSIUM 4.6 mmol/L (3.5-5.1)
[2021-08-10 06:19] LABS: BASOPHIL 0.7 % (0-2); EOSINOPHIL 4.2 % (0-7); HCT 28.7 % (42.0-52.0); HGB 8.5 g/dl (13.2-18.0); LYMPHOCYTE 10.5 % (15-48); MCH 30.8 pg (25.0-31.0); MCHC 29.6 g/dL (32.0-36.0); MONOCYTE 7.6 % (0-12); MPV 11.5 fL (6.0-9.5); NEUTROPHIL 75.6 % (41-80); NRBC 0; PLT 158 K/uL (150-400); RBC 2.76 M/uL (4.70-6.00); RDW 14.7 % (11.5-14.0); WBC 8.1 K/uL (4.0-10.5)
[2021-08-10 06:36] LABS: BUN/CREAT RATIO (CALC) 46.5 RATIO; CREATININE 0.86 mg/dL (0.67-1.17); POTASSIUM 4.4 mmol/L (3.5-5.1)
--- NOTE | 2021-08-10 12:06 | NUR ---
08/10 Awaiting response from insurance re; approval for admission to [facility], .
--- NOTE | 2021-08-10 13:17 | NUR ---
PT REMOVED FROM BIPAP AT THIS ITME TO COMPLETE ORAL CAR/SUCTIONING. REMOVED ALLEYN ON PT NOSE BRIDGE AND SKIN IS DARK PURPLE WITH SHEARING. PT IS CURRENTLY ON AN OXIMIZER AT 10L SAT IS 100%. PT LABORED BREATHING BUT LUNGS CLEAR. FAMILY IS AT BEDSIDE. PT ENCOURAGED TO STAY OFF BIPAP FOR LONGER PERIODS OF TIME PER RN AND RT.
[2021-08-10 18:17] LABS: MAGNESIUM 2.7 mg/dL (1.8-2.4); POTASSIUM 4.7 mmol/L (3.5-5.1)
[2021-08-11 05:56] LABS: BASOPHIL 0.7 % (0-2); EOSINOPHIL 4.2 % (0-7); HCT 26.9 % (42.0-52.0); HGB 7.9 g/dl (13.2-18.0); MCH 30.9 pg (25.0-31.0); MCHC 29.4 g/dL (32.0-36.0); MCV 105.1 fL (78.0-100.0); MONOCYTE 7.2 % (0-12); MPV 10.8 fL (6.0-9.5); NEUTROPHIL 74.7 % (41-80); NRBC 0; PLT 157 K/uL (150-400); RBC 2.56 M/uL (4.70-6.00); RDW 14.8 % (11.5-14.0); WBC 7.3 K/uL (4.0-10.5)
[2021-08-11 07:11] LABS: BUN/CREAT RATIO (CALC) 51.9 RATIO; CREATININE 0.81 mg/dL (0.67-1.17); MAGNESIUM 2.5 mg/dL (1.8-2.4); PHOSPHORUS 3.4 mg/dL (2.6-4.7); POTASSIUM 4.5 mmol/L (3.5-5.1)
[2021-08-12 06:31] LABS: BASOPHIL 0.7 % (0-2); HCT 27.1 % (42.0-52.0); HGB 8.1 g/dl (13.2-18.0); LYMPHOCYTE 12.7 % (15-48); MCHC 29.9 g/dL (32.0-36.0); MCV 103.8 fL (78.0-100.0); MONOCYTE 7.5 % (0-12); MPV 10.7 fL (6.0-9.5); NEUTROPHIL 75.4 % (41-80); NRBC 0; PLT 153 K/uL (150-400); RBC 2.61 M/uL (4.70-6.00); WBC 7.7 K/uL (4.0-10.5)
[2021-08-12 06:56] LABS: BUN/CREAT RATIO (CALC) 49.4 RATIO; CREATININE 0.87 mg/dL (0.67-1.17); MAGNESIUM 2.5 mg/dL (1.8-2.4); POTASSIUM 4.5 mmol/L (3.5-5.1)
--- NOTE | 2021-08-12 18:07 | NUR ---
ACCOMPANIED HE SPOKE WITH FAMILY REGARDING PATIENT STATUS AND THE NEED TO MAKE A DECISION ON HEALTH UNIT SUPERVISOR CARE OR HOSPICE CARE SINCE PATIENT HAS REACHED A POINT WHERE THIS WILL BE HIS BASELINE STATE AND WILL NOT BE ABLE TO IMPROVE WITHOUT THE NEED OF BIPAP. FAMILY IS GOING TO DISCUSS AND COME TO DECISION FRIDAY/FRIDAY. INSURANCE IS PENDING AT [place] FOR ASSISTED , DAUGHTER, SON AND GRANDSON WERE PRESENT FOR DETAILED DISUSSION.
--- NOTE | 2021-08-12 18:13 | NUR ---
UNABLE TO CHANGE TUBE FEEDS TO JEVITY 1.5 ORDERED DIETARY STATED THEY HAD NONE IN STOCK AT THIS TIME, AWAITING SHIPMENT INCREASED RATE TO 6O
[2021-08-13 06:17] LABS: BASOPHIL 1.1 % (0-2); EOSINOPHIL 4.6 % (0-7); HCT 26.6 % (42.0-52.0); HGB 7.8 g/dl (13.2-18.0); LYMPHOCYTE 15.5 % (15-48); MCH 30.2 pg (25.0-31.0); MCHC 29.3 g/dL (32.0-36.0); MCV 103.1 fL (78.0-100.0); MONOCYTE 8.1 % (0-12); MPV 11.1 fL (6.0-9.5); NEUTROPHIL 70.2 % (41-80); NRBC 0; PLT 149 K/uL (150-400); RBC 2.58 M/uL (4.70-6.00); WBC 7.4 K/uL (4.0-10.5)
[2021-08-13 06:19] LABS: BUN/CREAT RATIO (CALC) 53.2 RATIO; CREATININE 0.94 mg/dL (0.67-1.17); PHOSPHORUS 4.2 mg/dL (2.6-4.7); POTASSIUM 4.3 mmol/L (3.5-5.1)
[2021-08-14 06:51] LABS: BASOPHIL 0.7 % (0-2); EOSINOPHIL 4.4 % (0-7); HCT 25.9 % (42.0-52.0); HGB 7.7 g/dl (13.2-18.0); LYMPHOCYTE 12.2 % (15-48); MCHC 29.7 g/dL (32.0-36.0); MCV 104.4 fL (78.0-100.0); MONOCYTE 7.2 % (0-12); NEUTROPHIL 74.9 % (41-80); NRBC 0; PLT 153 K/uL (150-400); RBC 2.48 M/uL (4.70-6.00); RDW 14.8 % (11.5-14.0); WBC 8.4 K/uL (4.0-10.5)
[2021-08-14 07:14] LABS: BUN/CREAT RATIO (CALC) 59.1 RATIO; CREATININE 0.93 mg/dL (0.67-1.17); POTASSIUM 4.4 mmol/L (3.5-5.1)
--- NOTE | 2021-08-14 10:04 | NUR ---
08/14 Insurance denied admission to LTACH. Dr. Salcido conducted a Peer to Peer. - A referral was made to [facility] for review.
--- NOTE | 2021-08-14 10:34 | NUR ---
discussed need to increase rate to 70cc/hr for TF order with MD. this will account for formula changed to Jevity 1.2 d/t availability. MD agreeable to recommendations.
[2021-08-15 06:53] LABS: BASOPHIL 0.7 % (0-2); EOSINOPHIL 2.9 % (0-7); HCT 26.5 % (42.0-52.0); LYMPHOCYTE 9.9 % (15-48); MCH 30.3 pg (25.0-31.0); MCHC 29.1 g/dL (32.0-36.0); MCV 104.3 fL (78.0-100.0); MONOCYTE 7.1 % (0-12); NEUTROPHIL 78.8 % (41-80); NRBC 0; PLT 163 K/uL (150-400); RBC 2.54 M/uL (4.70-6.00); WBC 10.4 K/uL (4.0-10.5)
[2021-08-15 06:54] LABS: HGB 7.7 g/dl (13.2-18.0)
[2021-08-15 07:14] LABS: CREATININE 0.93 mg/dL (0.67-1.17); POTASSIUM 4.6 mmol/L (3.5-5.1)
--- NOTE | 2021-08-15 09:47 | NUR ---
08/15/[address] Marvin, patient is not appropriate for SNF at this time. [facility] has initiated an appeal.
--- NOTE | 2021-08-15 17:26 | NUR ---
FAMILY REQUESTED PATIENT GO TO [facility] IN [place]. CHAPLAN CAME TO PRAY WITH THE FAMILY. BIPAP WAS REMOVED AT 1600 PER THE SPOUSE DECISION. PATIENT O2 DECREASED TO 38% ATIVAN AND DILAUDID GIVEN FOR COMFORT
--- NOTE | 2021-08-15 21:11 | NUR ---
[id number] FAMILY REPORTS THAT PATIENT HAS NOT TAKEN A BREATH IN A FEW MINUTES. 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 O2 NOT PICKING UP ON MONITOR. PHYSICIAN AND RN ENTER ROOM WITH FAMILY AT BEDSIDE. 1923 PATIENT PRNONOUNCED AT THIS TIME PER MD. MAGNETS PLACED OVER BOTH PACMAKERS. HOME NOTIFIED. 1929 PT CLEANED UP. ALL LINES REMOVED. 1944 PT RELEASED TO HOME AT THIS TIME.
--- NOTE | 2021-08-16 09:43 | NUR ---
08/16/21 Mr. Carnes 08/15/21. Emotional support was provided with family. - [facility] was informed.
== END 2021-08-15 20:43 | disposition expired | DRG 871 ==
LOC: FER 10:34 → FICU 13:37 → FTCU 08-05 07:55
PROVIDERS: Allergy & Immunology Allergy; Emergency Medicine; Family Medicine; Nurse Practitioner; Nurse Practitioner Acute Care; ADMIT Internal Medicine
PROC: 3E03329 Introduction of Other Anti-infective into Peripheral Vein, Percutaneous Approach (ICD-10-PCS; principal; 2021-07-30)
PROC: 02HV33Z Insertion of Infusion Device into Superior Vena Cava, Percutaneous Approach (ICD-10-PCS; 2021-07-30)
PROC: 3E033XZ Introduction of Vasopressor into Peripheral Vein, Percutaneous Approach (ICD-10-PCS; 2021-07-31)
PROC: 0D20XUZ Change Feeding Device in Upper Intestinal Tract, External Approach (ICD-10-PCS; 2021-08-01)
PROC: 0D9670Z Drainage of Stomach with Drainage Device, Via Natural or Artificial Opening (ICD-10-PCS; 2021-08-01)
PROC: 05H533Z Insertion of Infusion Device into Right Subclavian Vein, Percutaneous Approach (ICD-10-PCS; 2021-08-02)
PROC: 5A09357 Assistance with Respiratory Ventilation, Less than 24 Consecutive Hours, Continuous Positive Airway Pressure (ICD-10-PCS; 2021-08-02)
PROC: 5A09357 Assistance with Respiratory Ventilation, Less than 24 Consecutive Hours, Continuous Positive Airway Pressure (ICD-10-PCS; 2021-08-03)
PROC: 30233N1 Transfusion of Nonautologous Red Blood Cells into Peripheral Vein, Percutaneous Approach (ICD-10-PCS; 2021-08-03)
PROC: 5A09357 Assistance with Respiratory Ventilation, Less than 24 Consecutive Hours, Continuous Positive Airway Pressure (ICD-10-PCS; 2021-08-04)
PROC: 5A09357 Assistance with Respiratory Ventilation, Less than 24 Consecutive Hours, Continuous Positive Airway Pressure (ICD-10-PCS; 2021-08-05)
PROC: 5A09457 Assistance with Respiratory Ventilation, 24-96 Consecutive Hours, Continuous Positive Airway Pressure (ICD-10-PCS; 2021-08-06)
PROC: 5A09557 Assistance with Respiratory Ventilation, Greater than 96 Consecutive Hours, Continuous Positive Airway Pressure (ICD-10-PCS; 2021-08-11)
DX: A41.9 Sepsis, unspecified organism (principal); L89.153 Pressure ulcer of sacral region, stage 3; R65.21 Severe sepsis with septic shock; N17.0 Acute kidney failure with tubular necrosis; I50.33 Acute on chronic diastolic (congestive) heart failure; J96.21 Acute and chronic respiratory failure with hypoxia; J96.22 Acute and chronic respiratory failure with hypercapnia; E87.0 Hyperosmolality and hypernatremia; K92.0 Hematemesis; K94.23 Gastrostomy malfunction; E46 Unspecified protein-calorie malnutrition; I47.2 Ventricular tachycardia; R64 Cachexia; L89.320 Pressure ulcer of left buttock, unstageable; L89.312 Pressure ulcer of right buttock, stage 2; Z66 Do not resuscitate; Z20.822 Contact with and (suspected) exposure to COVID-19; Z51.5 Encounter for palliative care; I48.0 Paroxysmal atrial fibrillation; I25.5 Ischemic cardiomyopathy; I25.10 Atherosclerotic heart disease of native coronary artery without angina pectoris; E86.0 Dehydration; R77.8 Other specified abnormalities of plasma proteins; D69.6 Thrombocytopenia, unspecified; D53.9 Nutritional anemia, unspecified; I11.0 Hypertensive heart disease with heart failure; R62.7 Adult failure to thrive; J44.9 Chronic obstructive pulmonary disease, unspecified; E03.9 Hypothyroidism, unspecified; K21.9 Gastro-esophageal reflux disease without esophagitis; I27.20 Pulmonary hypertension, unspecified; R60.0 Localized edema; M10.9 Gout, unspecified; E78.5 Hyperlipidemia, unspecified; Z96.631 Presence of right artificial wrist joint; Z68.21 Body mass index [BMI] 21.0-21.9, adult; Z96.641 Presence of right artificial hip joint; Z95.1 Presence of aortocoronary bypass graft; Z95.810 Presence of automatic (implantable) cardiac defibrillator; Z90.49 Acquired absence of other specified parts of digestive tract; Z79.899 Other long term (current) drug therapy; Z87.891 Personal history of nicotine dependence
CPT/HCPCS: 36415; 36430; 36600; 71045; 74018; 80048; 80053; 80202; 81001; 81003; 82607; 82728; 82803; 82962; 83605; 83735; 83880; 84100; 84132; 84145; 84443; 84484; 85025; 85610; 85730; 86850; 86900; 86901; 86922; 87040; 87088; 93005; 93971; 94010; 94640; 94660; 97162; 97166; C9113; J1170; J1200; J1642; J1650; J1720; J1885; J1940; J2060; J2270; J2543; J2997; J3370; J3480; J7030; J7040; J7050; J7060; J7120; P9016; P9047; U0002